=== PATIENT | male | born 2000 | race Caucasian/White ===

== ENCOUNTER 2018-07-23 12:43 | Emergency (ER) | payer BC ==
[2018-07-23 15:14] VITALS: BP 127/82
--- NOTE | 2018-07-23 18:14 | ED ---
Upper Extremity Pain - HPI Summary HPI Summary: Patient is a 18-year-old male who presents emergency department for right hand injury that occurred last night. Patient admits to drinking alcohol last evening when he became angry and punched a wall. No other injuries were sustained. Moving and touching right hand makes symptoms worse. Rest makes symptoms better. He denies past medical history. Symptoms are mild in severity. Has not taken any OTC analgesics. - History of Current Complaint Chief Complaint: EDExtremityUpper Stated Complaint: RIGHT HAND INJURY Time Seen by Provider: 07/23/18 14:28 Hx Obtained From: Patient - Allergies/Home Medications Allergies/Adverse Reactions: Allergies Allergy/AdvReac Type Severity Reaction Status Date / Time No Known Allergies Allergy Verified 07/23/18 12:53 PMH/Surg Hx/FS Hx/Imm Hx Previously Healthy: Yes Infectious Disease History: No Infectious Disease History: Denies: Traveled Outside the [place] in Last 30 Days - Family History Known Family History: Positive: Non-Contributory - Social History Occupation: Student Lives: Dormitory/Roommates Alcohol Use: Occasionally Substance Use Type: Reports: None Smoking Status (MU): Never Smoked Tobacco Review of Systems Positive: Other - Right hand pain Negative: Weakness, Paresthesia, Numbness All Other Systems Reviewed And Are Negative: Yes Physical Exam Triage Information Reviewed: Yes Vital Signs On Initial Exam: Initial Vitals Temp Pulse Resp BP Pulse Ox 98.8 F 72 16 121/71 99 07/23/18 12:53 07/23/18 12:53 07/23/18 12:53 07/23/18 12:53 07/23/18 12:53 Vital Signs Reviewed: Yes Appearance: Positive: Well-Appearing - Pt. sitting on bed in NAD. Friend present. Skin: Positive: Warm, Dry Head/Face: Positive: Normal Head/Face Inspection Eyes: Positive: Normal, EOMI Neck: Positive: Supple Musculoskeletal: Positive: Other - Edema and pain noted over the lateral aspect of right hand. No overlying wounds. Full ROM of all digits. No Proximal wrist or elbow pain. Good radial pulse Neurological: Positive: Normal, CN Intact II-III Psychiatric: Positive: Affect/Mood Appropriate Procedures - Splinting Right Upper Extremity Hand-Made Type: orthoglass Splint: ulnar Pre-Proc Neuro Vasc Exam: normal Post-Proc Neuro Vasc Exam: normal Diagnostics - Vital Signs Vital Signs Temp Pulse Resp BP Pulse Ox 07/23/18 15:12 98.7 F 61 19 127/82 97 07/23/18 12:53 98.8 F 72 16 121/71 99 - Laboratory Lab Statement: Any lab studies that have been ordered have been reviewed, and results considered in the medical decision making process. Course/Dx - Course Course Of Treatment: Pt. presenting for isolated hand injury. X-ray shows angulated fracture of the distal fifth metacarpal. Ulnar gutter splint was applied. We'll have patient call orthopedic clinic tomorrow morning to schedule close follow-up appointment. Advised to elevate. Tylenol or Motrin for pain as directed. Patient understands and agrees with plan - Diagnoses Differential Diagnosis/HQI/PQRI: Positive: Contusion, Fracture (Closed), Strain , Sprain Provider Diagnoses: Boxer's fracture Discharge - Sign-Out/Discharge Documenting (check all that apply): Patient Departure - Discharge Plan Condition: Good Disposition: HOME Patient Education Materials: Boxer Fracture (ED) Referrals: Luisa Santos MD [Primary Care Provider] - Andres Lagunas MD [Medical Doctor] - Additional Instructions: Call Dr. Lagunas's office tomorrow morning for a close follow up appointment Ice and elevate Keep splint in place Return to ER if symptoms change or worsen - Billing Disposition and Condition Condition: GOOD Disposition: Home
== END 2018-07-23 15:12 | disposition home or self-care (01) ==
LOC: ED 12:43
DX: S62.346A Nondisplaced fracture of base of fifth metacarpal bone, right hand, initial encounter for closed fracture (principal); W22.09XA Striking against other stationary object, initial encounter; Y92.9 Unspecified place or not applicable
CPT/HCPCS: 99281

== ENCOUNTER 2019-03-13 02:19 | Emergency (ER) | payer BC ==
[2019-03-13] MEDS ORDERED: NS 0.9% 1000 ML** 1,000 ML IV ONE (03:15)
[2019-03-13] MEDS ORDERED: Pantoprazole IV* 40 MG IV ONE (03:15)
--- NOTE | 2019-03-13 03:19 | ED ---
GI/ HPI - HPI Summary HPI Summary: This pt is a 19 y/o M presenting to [facility] with a CC of dark stool described as coffee ground color. He states that he has had abdominal discomfort since in the afternoon described as hunger. He states that he ate but the sensations did not go away. States that he has diarrhea. He denies any fevers, diaphoresis, abdominal pain, nausea and vomiting, and headaches. He states no aggravating or alleviating factors. HE has no pertinent PMHx. - History of Current Complaint Chief Complaint: EDAbdPain Time Seen by Provider: 03/13/19 02:54 Stated Complaint: STOMACH PROBLEMS PER PT Hx Obtained From: Patient Onset/Duration: Started Days Ago - 03/12/19, Still Present Timing: Constant, Lasting Days - 1 Severity: Mild Current Severity: Mild Pain Intensity: 1 Location of Pain: None Associated Signs and Symptoms: Positive: Negative - headaches, Black Tarry Stool - described as coffee ground color, Diarrhea. Negative: Nausea, Vomiting , Diaphoresis, Fever, Abdominal Pain Aggravating Factor(s): Nothing Alleviating Factor(s): Nothing - Allergy/Home Medications Allergies/Adverse Reactions: Allergies Allergy/AdvReac Type Severity Reaction Status Date / Time No Known Allergies Allergy Verified 03/13/19 02:24 Home Medications: Home Medications NK [No Home Medications Reported] 03/13/19 [History Confirmed 03/13/19] PMH/Surg Hx/FS Hx/Imm Hx Previously Healthy: Yes Endocrine/Hematology History: Denies: Hx Diabetes Cardiovascular History: Denies: Hx Hypertension Respiratory History: Denies: Hx Asthma - Surgical History Surgical History: None - Immunization History Immunizations Up to Date: Yes Infectious Disease History: No Infectious Disease History: Denies: Traveled Outside the [place] in Last 30 Days - Family History Known Family History: Positive: Non-Contributory Negative: Hypertension - Social History Occupation: Student Lives: Dormitory/Roommates Alcohol Use: Occasionally Hx Substance Use: No Substance Use Type: Reports: None Hx Tobacco Use: No Smoking Status (MU): Never Smoked Tobacco Review of Systems Negative: Fever, Skin Diaphoresis Positive: Diarrhea. Negative: Abdominal Pain, Vomiting, Nausea Positive: other - blackened stool described as coffee ground color Negative: Headache All Other Systems Reviewed And Are Negative: Yes Physical Exam - Summary Physical Exam Summary: VITAL SIGNS: Reviewed. GENERAL: Patient is a well-developed and nourished male who is lying comfortable in the stretcher. Patient is not in any acute respiratory distress. HEAD AND FACE: No signs of trauma. No ecchymosis, hematomas or skull depressions. No sinus tenderness. EYES: PERRLA, EOMI x 2, No injected conjunctiva, no nystagmus. EARS: Hearing grossly intact. Ear canals and tympanic membranes are within normal limits. MOUTH: Oropharynx within normal limits. NECK: Supple, trachea is midline, no adenopathy, no JVD, no carotid bruit, no c- spine tenderness, neck with full ROM CHEST: Symmetric, no tenderness at palpation LUNGS: Clear to auscultation bilaterally. No wheezing or crackles. CVS: Regular rate and rhythm, S1 and S2 present, no murmurs or gallops appreciated. ABDOMEN: Soft, non-tender. No signs of distention. No rebound no guarding, and no masses palpated. Bowel sounds are normal. EXTREMITIES: FROM in all major joints, no edema, no cyanosis or clubbing. NEURO: Alert and oriented x 3. No acute neurological deficits. Speech is normal and follows commands. SKIN: Dry and warm Rectal exam: dark stool sent for occult blood Triage Information Reviewed: Yes Vital Signs On Initial Exam: Initial Vitals Temp Pulse Resp BP Pulse Ox 98.5 F 62 16 171/104 100 03/13/19 02:21 03/13/19 02:21 03/13/19 02:21 03/13/19 02:21 03/13/19 02:21 Vital Signs Reviewed: Yes Diagnostics - Vital Signs Vital Signs Temp Pulse Resp BP Pulse Ox 03/13/19 03:08 53 17 133/79 100 03/13/19 03:00 54 16 98 03/13/19 02:39 55 15 99 03/13/19 02:38 54 142/87 99 03/13/19 02:21 98.5 F 62 16 171/104 100 - Laboratory Result Diagrams: 03/13/19 03:29 03/13/19 03:29 Lab Statement: Any lab studies that have been ordered have been reviewed, and results considered in the medical decision making process. GIGU Course/Dx - Course Course Of Treatment: Pt is a 19 y/o M presenting to [facility] with a CC of blackened stool described as coffee ground color. The pt denies any stomach pain but states that he has the sensation of hunger that is unrelenting. His PE found that he has a black stool which will be sent for occult blood testing. Time: 0451. Review of results was patient. Patient was found to have normal H&H, normal blood urea. Which make upper GI bleed very less likely. Patient stool occult blood was positive. Not sure about the reason why stool occult blood is positive. Patient has been hemodynamically stable in the emergency room,. 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 Patient understands and agrees with the plan. - Diagnoses Provider Diagnoses: Guaiac positive stools, Abdominal pain Discharge - Sign-Out/Discharge Documenting (check all that apply): Patient Departure - discharge Patient Received Moderate/Deep Sedation with Procedure: No - Discharge Plan Condition: Stable Disposition: HOME Patient Education Materials: Abdominal Pain (ED), Melena (ED) Referrals: Jonn Ponce MD [Medical Doctor] - 2 Days Additional Instructions: Please follow up with your primary care physician in 2-3 days and return to the emergency department for any new or worsening symptoms. - Attestation Statements Document Initiated by Scribe: Yes Documenting Scribe: Hugo Moreno Provider For Whom Scribe is Documenting (Include Credential): Jeancarlos Mosher MD Scribe Attestation: Hugo Hewitt, scribed for Jeancarlos Mosher MD on 03/13/19 at 0511. Status of Scribe Document: Ready
[2019-03-13 03:38] LABS: ABS Eosinophils 0.1 10^3/ul (0-0.6); ABS Lymphocytes 1.6 10^3/ul (1.0-4.8); ABS Monocytes 0.5 10^3/ul (0-0.8); ABS Neutrophils 4.6 10^3/ul (1.5-7.7); Eosinophil % 2.1 %; Hematocrit 43 % (42-52); Hemoglobin 14.6 g/dL (14.0-18.0); Lymphocyte % 22.8 %; Mean Corpuscular HGB Conc 34 g/dL (31-36); Mean Corpuscular Hemoglobin 31 pg (27-31); Mean Corpuscular Volume 90 fL (80-94); Mean Platelet Volume 8.5 fL (7.4-10.4); Nucleated Red Blood Cells % 0.1; Platelet Count 173 10^3/uL (150-450); Red Blood Count 4.76 10^6 /uL (4.18-5.48); Red Cell Distribution Width 14 % (10-15); White Blood Count 6.8 10^3/uL (3.5-10.8)
[2019-03-13 03:53] LABS: ALT 23 U/L (7-52); AST 39 U/L (13-39); Albumin 4.5 g/dL (3.2-5.2); Albumin/Globulin Ratio 1.7 (1-3); Alkaline Phosphatase 79 U/L (34-104); Amylase 43 U/L (29-103); Anion Gap 7 mmol/L (2-11); BUN/Creatinine Ratio 24.5 (8-20); Blood Urea Nitrogen 23 mg/dL (6-24); CO2 Carbon Dioxide 27 mmol/L (22-32); Calcium 9.7 mg/dL (8.6-10.3); Chloride 103 mmol/L (101-111); EGFR African American 122.6 (>60); EGFR Non-African American 101.3 (>60); Globulin 2.7 g/dL (2-4); Glucose 111 mg/dL (70-100); Potassium 3.7 mmol/L (3.5-5.0); Sodium 137 mmol/L (135-145); Total Protein 7.2 g/dL (6.4-8.9)
[2019-03-13 04:01] LABS: Activated Partial Thrombo Time 32.3 seconds (26.0-38.0); INR 1.01 (0.82-1.09)
[2019-03-13 04:50] VITALS: BP 114/68
== END 2019-03-13 05:15 | disposition home or self-care (01) ==
LOC: ED 02:19
DX: R19.5 Other fecal abnormalities (principal); R10.9 Unspecified abdominal pain
CPT/HCPCS: 36415; 80053; 82150; 82270; 83690; 85025; 85610; 85730; 86850; 86900; 86901; 96361; 96374; 99283